=== PATIENT | male | born 1995 | race Caucasian/White ===

== ENCOUNTER 2017-04-12 07:54 | Emergency (ER) | payer OTHER ==
[~2017-04-12] VITALS: Ht 182.9 cm; Wt 91.2 kg
[2017-04-12 08:01] VITALS: BP 155/93
--- NOTE | 2017-04-12 08:50 | REP ---
Clinical: Trauma. Technique: AP, lateral, bilateral oblique views of the right elbow. Findings: A small nondisplaced fracture involving the coronoid process of the proximal ulna is appreciated along with soft tissue swelling, elevation of the fat pad and effusion/hemarthrosis. Impression: Nondisplaced fracture of the coronoid process with associated swelling and effusion. Signed by Elroy Dominique MD 04/12/2017 08:41 A
== END 2017-04-12 09:33 | disposition home or self-care (01) ==
LOC: M ED 09:12
DX: S52.044A Nondisplaced fracture of coronoid process of right ulna, initial encounter for closed fracture (principal); W01.0XXA Fall on same level from slipping, tripping and stumbling without subsequent striking against object, initial encounter; Y92.019 Unspecified place in single-family (private) house as the place of occurrence of the external cause; Y93.89 Activity, other specified; Y99.8 Other external cause status

== ENCOUNTER → 2020-09-05 | Outpatient (CLI) | payer SELFPAY | LOC: M LABSMTC 09:11 | PROVIDERS: ATTEND Pediatrics | DX: Z20.828 Contact with and (suspected) exposure to other viral communicable diseases (principal) ==